=== PATIENT | female | born 1990 ===

== ENCOUNTER 2018-09-06 18:50 | Emergency (ER) | payer MEDICAID ==
[2018-09-06 19:01] VITALS: O2SAT 99; BMI 21.8
[2018-09-06] MEDS ORDERED: Sodium Chloride 0.9% 1,000 ML IV STA (20:08)
--- NOTE | 2018-09-06 20:33 | ED PDOC ---
HPI: Headache Time Seen by Provider: 09/06/18 19:26 Chief Complaint (Nursing): Chest Pain Chief Complaint (Provider): Headache History Per: Patient History/Exam Limitations: no limitations Onset/Duration Of Symptoms: Days (x 1) Current Symptoms Are (Timing): Still Present Severity: Moderate Quality: "Pain" Preceeding Symptoms: None Additional Complaint(s): 27 year old female with no significant medical history presents to the ED for evaluation of a headache and chest pain that come and go for approximately 24 hours ago. Symptoms worsening at midnight and are associated with fatigue. Roel vazquez reports that during an 11 hour shift yesterday she gradually developed a headache on both sides of her head that is worse with movement. Headache is associated with chest pain that is localized at midsternal area and does not radiate. She took Advil for pain without much relief. Denies photophobia, sudden onset, thunderclap, anxiety, shortness of breath, vomiting, leg swelling and acceleration of pain. PMD: none provided Against Medical Advice - AMA Patient Left Against Medical Advice: The patient declines admission to the hospital and wishes to leave the Emergency Department. This action is against my medical advice. This decision was made with informed refusal. The patient was told that admission to the hospital is necessary. Explanation of the reasons why were discussed. The risks of leaving were explained to the patient and include, but are not limited to, worsening of known or currently unknown conditions, permanent disability and from undiagnosed or untreated conditions. The patient has the capacity to make this informed decision and understands my explanation of the current medical problem and risks of leaving. The patient voluntarily accepts these risks and signed an AMA form documenting our conversation. The patient was given the opportunity to ask questions and reconsider. The patient was encouraged to return to the Emergency Department at any time for further care. Past Medical History Reviewed: Historical Data, Nursing Documentation, Vital Signs Vital Signs: Last Vital Signs Temp 100.4 F H 09/06/18 19:00 Pulse 82 09/06/18 19:15 Resp 18 09/06/18 19:00 BP 121/66 09/06/18 19:15 Pulse Ox 99 09/06/18 19:00 - Medical History PMH: No Chronic Diseases - Surgical History Surgical History: No Surg Hx - Family History Family History: States: Unknown Family Hx - Home Medications Home Medications: Ambulatory Orders Medication Instructions Recorded Ibuprofen [Motrin] 600 mg PO Q6 PRN #20 tab 09/06/18 - Allergies Allergies/Adverse Reactions: Allergies Allergy/AdvReac Type Severity Reaction Status Date / Time No Known Allergies Allergy Verified 09/06/18 19:04 Review of Systems ROS Statement: Except As Marked, All Systems Reviewed And Found Negative Eyes: Negative for: Vision Change Cardiovascular: Positive for: Chest Pain. Negative for: Palpitations Respiratory: Negative for: Shortness of Breath Gastrointestinal: Negative for: Nausea, Vomiting, Abdominal Pain, Diarrhea Musculoskeletal: Negative for: Leg Pain Neurological: Positive for: Headache Physical Exam - Reviewed Nursing Documentation Reviewed: Yes Vital Signs Reviewed: Yes - Physical Exam Appears: Positive for: No Acute Distress Head Exam: Positive for: ATRAUMATIC, NORMAL INSPECTION, NORMOCEPHALIC Skin: Positive for: Normal Color, Warm, Dry Eye Exam: Positive for: EOMI, Normal appearance, PERRL Neck: Positive for: Normal, Painless ROM, Supple Cardiovascular/Chest: Positive for: Regular Rate, Rhythm. Negative for: Murmur Respiratory: Positive for: Normal Breath Sounds. Negative for: Respiratory Distress Gastrointestinal/Abdominal: Positive for: Normal Exam, Soft. Negative for: Tenderness Back: Positive for: Normal Inspection. Negative for: L CVA Tenderness, R CVA Tenderness Extremity: Positive for: Normal ROM (x 4). Negative for: Deformity Neurological/Psych: Positive for: Awake, Alert, Normal Tone, Oriented. Negative for: Cerebellar Tests, Motor/Sensory Deficits - Laboratory Results Result Diagrams: 09/06/18 20:16 09/06/18 20:16 - ECG O2 Sat by Pulse Oximetry: 99 (RA) Pulse Ox Interpretation: Normal Medical Decision Making Medical Decision Makin:07 Impression: headache and chest pain Headache: differential diagnoses include but are not limited to: primary: ten yun headache, migraine, cluster headaches. Secondary: brain mass Chest pain: differential diagnoses include but are not limited to: consider ACS , less likely pulmonary embolism or musculoskeletal pain Initial Plan: --CT head --EKG --BMP --CBC --Troponin --urine dip --NS IV --Reglan 10 mg in NS 50 ml IV --Toradol 30 mg IV 22:05 Patient reports complete improvement of symptoms at this time and is refusing to have a CT performed. She is signing out against medical advice at this time. Scribe Attestation: Documented by Mercedes Lopez, acting as a scribe Linda Hauser MD Provider Scribe Attestation: All medical record entries made by the Scribe were at my direction and personally dictated by me. I have reviewed the chart and agree that the record accurately reflects my personal performance of the history, physical exam, medical decision making, and the department course for this patient. I have also personally directed, reviewed, and agree with the discharge instructions and disposition Disposition - Clinical Impression Clinical Impression: Left against medical advice, Chest pain, Fever, Headache - Patient ED Disposition Is Patient to be Admitted: No Counseled Patient/Family Regarding: Studies Performed, Diagnosis, Need For Followup - Disposition Referrals: [facility] [place] [Outside] Disposition: Against Medical Advice Disposition Time: 22:05 Condition: GOOD Additional Instructions: WEI JAIMES, thank you for letting us take care of you today. Your provider was Benny Hauser MD and you were treated for CHEST PAIN;HEADA IQRA. The emergency medical care you received today was directed at your acute symptoms. If you were prescribed any medication, please fill it and take as directed. It may take several days for your symptoms to resolve. Return to the Emergency Department if your symptoms worsen, do not improve, or if you have any other problems. Please contact your doctor or call one of the physicians/clinics you have been referred to that are listed on the Patient Visit Information form that is included in your discharge packet. Bring any paperwork you were given at discharge with you along with any medications you are taking to your follow up visit. Our treatment cannot replace ongoing medical care by a primary care provider outside of the emergency department. Thank you for allowing the [facility] team to be part of your care today. Prescriptions: Ibuprofen [Motrin] 600 mg PO Q6 PRN #20 tab PRN Reason: Headache Instructions: Headache, Adult, Chest Pain, Fever, Adult (DC), Leaving Against Medical Advice Forms: [employer] ([place]ian)
[2018-09-06 20:38] LABS: BASO % 0.4 % (0.0-2.0); EOS % 0.4 % (0.0-4.0); LYMPH # 1.9 K/uL (1.0-4.3); LYMPH % 15.4 % (20.0-40.0); MEAN CELL VOLUME 91.2 fl (81.0-99.0); MEAN CORPUSCULAR HEMOGLOBIN 30.1 pg (27.0-31.0); MONO # 0.6 K/uL (0.0-0.8); MONO % 4.7 % (0.0-10.0); NEUT # 9.7 K/uL (1.8-7.0); NEUT % 79.1 % (50.0-75.0); RBC 4.33 Mil/uL (3.80-5.20); RED CELL DISTRIBUTION WIDTH 13.1 % (11.5-14.5); WHITE BLOOD COUNT 12.2 K/uL (4.8-10.8)
[2018-09-06 20:50] LABS: BLOOD UREA NITROGEN 15 mg/dl (7-17); CALCIUM 9.7 mg/dL (8.4-10.2); GFR NON-AFRICAN AMERICAN > 60
[2018-09-07 04:20] VITALS: BP 114/74; PULSE 80; RESP 16; TEMP 98.4
--- NOTE | 2018-09-07 22:31 | CARD ---
APPROVED REPORT Date of service: 09/06/2018 EKG Measurement Heart [id number] <Conclusion> Normal sinus rhythm Normal ECG
== END 2018-09-06 22:19 | disposition left against medical advice (07) ==
LOC: H.ER 18:50
DX: R51 Headache (principal); R50.9 Fever, unspecified; R07.89 Other chest pain
CPT/HCPCS: 80048; 81025; 84484; 85025; 93005; 96361; 96374; 96375; 99285; J1885; J2765; J7030